=== PATIENT | male | born 1985 | race Caucasian/White ===

== ENCOUNTER 2024-09-09 15:40 | Inpatient (IN) | payer SELFPAY ==
[~2024-09-09] VITALS: Ht 165.1 cm; Wt 113.9 kg
[2024-09-09 15:44] VITALS: O2SAT 100
[2024-09-09 16:14] LABS: BASOPHILS % 0.9 % (0.0-2.0); EOSINOPHILS % 0.7 % (0.0-5.0); HEMATOCRIT. 26.5 % (42.0-52.0); HEMOGLOBIN. 9.2 g/dL (14.0-18.0); LYMPHOCYTES % 14.1 % (20.0-50.0); MEAN PLATELET VOLUME 10.5 fl (7.4-10.4); MONOCYTES % 5.5 % (2.0-8.0); NEUTROPHILS % 78.8 % (40.0-76.0); PLATELET 177 x1000/uL (130-400); RED BLOOD CELL COUNT 3.07 mill/uL (4.7-6.1); RED CELL DISTRIBUTION WIDTH 14.5 % (11.6-14.6)
[2024-09-09 16:28] LABS: CREATININE 0.7 mg/dL (0.6-1.3)
[2024-09-09 16:29] LABS: UREA NITROGEN BLOOD 26 mg/dL (9-23)
[2024-09-09 16:30] LABS: ASPARTATE AMINOTRANSFERASE 39 IU/L (<34)
[2024-09-09 16:31] LABS: BILIRUBIN DIRECT 0.2 mg/dL (<=3.0); BILIRUBIN TOTAL 0.6 mg/dL (0.1-1.0); PROTEIN TOTAL 5.9 g/dL (6.0-8.3)
[2024-09-09 17:09] LABS: ETHANOL BLOOD < 10 mg/dL (<10); INR 1.2
[2024-09-09 17:10] LABS: TROPONIN I HIGH SENSITIVITY < 4 ng/L (3.0-53)
[2024-09-09] MEDS: SODIUM CHLORIDE 0.9% 1,000 ML IV ONE (17:30)
[2024-09-09] MEDS: PANTOPRAZOLE SODIUM 40 MG/VIAL IV ONE (17:32)
[2024-09-09] MEDS: ONDANSETRON HCL 4MG/2ML INJ IV ONE (17:32)
[2024-09-09] MEDS: MORPHINE SULFATE 4 MG/ML INJ (FOR IV/IM USE) IV ONE (17:33)
[2024-09-09] MEDS ORDERED: HYDROCODONE/ACETAMINOPHEN 5/325MG TABLET PO PRN (23:00)
[2024-09-09] MEDS ORDERED: CLONIDINE 0.1MG TABLET PO PRN (23:00)
[2024-09-09] MEDS ORDERED: MAGNESIUM/ALUMINUM HYDROXIDE/SIMETHICONE 30ML UDC PO PRN (23:00)
[2024-09-09] MEDS ORDERED: ACETAMINOPHEN 325MG TABLET PO PRN (23:00)
[2024-09-09] MEDS ORDERED: SODIUM CHLORIDE 0.9% 1,000 ML IV SCH (23:00)
[2024-09-09] MEDS ORDERED: ONDANSETRON HCL 4MG/2ML INJ IV PRN (23:00)
[2024-09-09] MEDS ORDERED: ZOLPIDEM TARTRATE 5MG TABLET PO PRN (23:00)
[2024-09-09] MEDS ORDERED: NALOXONE HCL 0.4MG/ML VIAL IV PRN (23:15)
[2024-09-09 23:22] VITALS: BP 129/74; PULSE 118; RESP 20; TEMP 36.8072
[2024-09-10] VITALS: BP 123/76; PULSE 104; RESP 18; TEMP 36.5; O2SAT 100
[2024-09-10 00:02] VITALS: BP 123/76; PULSE 104; RESP 18
[2024-09-10] MEDS: MORPHINE SULFATE 2 MG/ML INJ (NOT FOR IM USE) IV PRN (00:02)
[2024-09-10] MEDS ORDERED: MVI, ADULT NO.1 10 ML, FOLIC ACID 1 MG, THIAMINE HCL 100 MG in SODIUM CHLORIDE 0.9% 1,0... IV SCH (01:00)
[2024-09-10] MEDS ORDERED: PANTOPRAZOLE SODIUM 40 MG/VIAL IV SCH (09:00)
== END 2024-09-10 00:28 | disposition left against medical advice (07) | DRG 251 ==
LOC: ER 15:40 → 7WST 21:11 → EDBEDREQTM 21:49 → EDBEDREQ 21:49
PROVIDERS: ADMIT Internal Medicine; ATTEND Internal Medicine
DX: R10.9 Unspecified abdominal pain (principal); Z53.29 Procedure and treatment not carried out because of patient's decision for other reasons; Z79.899 Other long term (current) drug therapy
CPT/HCPCS: 36415; 71045; 74176; 80048; 80076; 80320; 84484; 85025; 86850; 86900; 93005; 96374; 99285; J2270; J2405; J2470; J3411; J3490; J7030; G0480